=== PATIENT | male | born 1975 | race Two or more races ===

== ENCOUNTER 2020-05-23 18:55 | Inpatient (IN) | payer MEDICAID ==
[~2020-05-23] VITALS: Ht 170.2 cm; Wt 78.0 kg
[2020-05-23 23:21] LABS: HEMATOCRIT. 45.1 % (42.0-52.0); HEMOGLOBIN. 15.4 g/dL (14.0-18.0); MEAN CORPUSCULAR HEMOGLOBIN 32.1 pg (28.0-32.0); MEAN CORPUSCULAR VOLUME 94.3 fL (80.0-94.0); MEAN PLATELET VOLUME 7.9 fl (7.4-10.4); PLATELET 136 x1000/uL (130-400); RED BLOOD CELL COUNT 4.78 mill/uL (4.7-6.1); RED CELL DISTRIBUTION WIDTH 13.1 % (11.6-14.6)
[2020-05-23 23:25] LABS: CHLORIDE 108 mEq/L (98-107)
[2020-05-23 23:53] LABS: PLATELET ESTIMATE NORMAL
[2020-05-24] MEDS ORDERED: SODIUM CHLORIDE 0.9% 1,000 ML IV ONE (00:18)
[2020-05-24] MEDS ORDERED: IOHEXOL-300 100 ML BOTTLE ONE (01:42)
[2020-05-24] MEDS ORDERED: ONDANSETRON HCL 4MG/2ML INJ IV PRN (05:15)
[2020-05-24] MEDS ORDERED: MORPHINE SULFATE 2 MG/ML CPJ (NOT FOR IM USE) IV PRN (05:15)
[2020-05-24] MEDS: DEXT 5%/0.45% NACL 1000ML 1,000 ML IV SCH ×2 (06:12→18:37)
[2020-05-24] MEDS ORDERED: CEFTRIAXONE 1 G PREMIX 50 ML IV SCH (12:30)
[2020-05-24] MEDS: ENOXAPARIN 40MG/0.4ML SYR SUBCUT SCH (13:42)
[2020-05-24] MEDS ORDERED: AZITHROMYCIN 500 MG in DEXT 5% WATER 250 ML IV SCH (14:00)
[2020-05-24 16:00] VITALS: BP 112/68
[2020-05-24 16:21] VITALS: BP 120/58
[2020-05-24 20:00] VITALS: BP 102/64
[2020-05-25] VITALS: BP 110/64
[2020-05-25 04:00] VITALS: BP 102/62
[2020-05-25 06:43] LABS: HEMATOCRIT. 44.9 % (42.0-52.0); HEMOGLOBIN. 15.5 g/dL (14.0-18.0); MEAN CORPUSCULAR HEMOGLOBIN 32.2 pg (28.0-32.0); MEAN CORPUSCULAR VOLUME 93.4 fL (80.0-94.0); PLATELET 147 x1000/uL (130-400); RED CELL DISTRIBUTION WIDTH 13.2 % (11.6-14.6)
[2020-05-25 06:48] LABS: CHLORIDE 106 mEq/L (98-107)
[2020-05-25 08:00] VITALS: BP 94/57
[2020-05-25] MEDS: DEXT 5%/0.45% NACL 1000ML 1,000 ML IV SCH ×2 (08:13→23:44)
[2020-05-25 11:05] LABS: ATYPICAL LYMPHOCYTES 1; PLATELET ESTIMATE NORMAL
[2020-05-25 12:00] VITALS: BP 100/68
[2020-05-25] MEDS: CEFTRIAXONE 1 G PREMIX 50 ML IV SCH (13:27)
[2020-05-25] MEDS: ENOXAPARIN 40MG/0.4ML SYR SUBCUT SCH (13:27)
[2020-05-25] MEDS: AZITHROMYCIN 500 MG in DEXT 5% WATER 250 ML IV SCH (14:55)
[2020-05-25 16:00] VITALS: BP 105/69
[2020-05-25 20:00] VITALS: BP 100/52
[2020-05-26] VITALS: BP 95/58
[2020-05-26 04:00] VITALS: BP 97/60
[2020-05-26 08:00] VITALS: BP 72/42
[2020-05-26] MEDS: SODIUM CHLORIDE 0.9% 1,000 ML IV SCH ×2 (10:00→22:30)
[2020-05-26 12:00] VITALS: BP 94/47
[2020-05-26] MEDS: ENOXAPARIN 40MG/0.4ML SYR SUBCUT SCH (13:22)
[2020-05-26] MEDS: AZITHROMYCIN 500 MG in DEXT 5% WATER 250 ML IV SCH (13:23)
[2020-05-26 16:00] VITALS: BP 96/48
[2020-05-26] MEDS: CEFTRIAXONE 1 G PREMIX 50 ML IV SCH (17:25)
[2020-05-26 20:00] VITALS: BP 110/65
[2020-05-27] VITALS: BP 115/63
[2020-05-27 04:00] VITALS: BP 106/53
[2020-05-27 08:00] VITALS: BP 97/53
[2020-05-27] MEDS ORDERED: AZITHROMYCIN 500 MG TABLET PO SCH (09:00)
[2020-05-27 11:11] VITALS: BP 97/53
== END 2020-05-27 12:50 | disposition home or self-care (01) | DRG 720 ==
LOC: ER 18:55 → 7WST 05-24 02:30 → EDBEDREQTM 05-24 02:32 → EDBEDREQ 05-24 02:32 → ENRESERV 05-24 14:11
PROVIDERS: ADMIT Hospitalist; ATTEND Hospitalist
DX: A41.89 Other specified sepsis (principal); U07.1 COVID-19; J12.89 Other viral pneumonia; K85.90 Acute pancreatitis without necrosis or infection, unspecified; I95.9 Hypotension, unspecified; J96.00 Acute respiratory failure, unspecified whether with hypoxia or hypercapnia; R74.0 Nonspecific elevation of levels of transaminase and lactic acid dehydrogenase [LDH]; Z72.89 Other problems related to lifestyle
CPT/HCPCS: 36415; 71045; 74177; 76705; 80053; 84484; 85025; 85379; 93005; 99291; J0456; J0696; J1650; J7030; J7060; Q9967; U0003-CS